=== PATIENT | male | born 1965 | race Hispanic/Latino ===

== ENCOUNTER 2021-01-23 01:06 | Observation (INO) | payer OTHER ==
[2021-01-23] MEDS ORDERED: Boostrix 0.5 ML (Tdap) VIAL ONE (02:41)
[2021-01-23] MEDS ORDERED: Ondansetron PF 4 MG/2 ML Vial ONE ×3 (03:00→16:43)
[2021-01-23] MEDS ORDERED: Morphine 4 MG/ML VIAL ONE (03:00)
[2021-01-23 05:29] VITALS: BMI 25.0
[2021-01-23] MEDS ORDERED: Ondansetron PF 4 MG/2 ML Vial IVP PRN (05:45)
[2021-01-23] MEDS ORDERED: Ondansetron ODT 4 MG TAB SL PRN (05:45)
[2021-01-23] MEDS: Morphine 4 MG/ML VIAL SLOW IVP PRN ×2 (05:55→18:18)
[2021-01-23] MEDS ORDERED: hydrALAZINE 20 MG/ML VIAL SLOW IVP PRN (07:03)
[2021-01-23] MEDS ORDERED: Dextrose 50% Abboject 50 ML SYRINGE SLOW IVP PRN (07:03)
[2021-01-23] MEDS ORDERED: Dextrose 5% in Water 1,000 ML IV PRN (07:03)
[2021-01-23 07:50] LABS: Phosphorus 3.8 mg/dL (2.3-4.7)
[2021-01-23 07:51] LABS: #Eosinphils 0.1 thou/uL (0.0-0.7); #Lymphocytes 1.8 thou/uL (1.20-3.40); #Monocytes 0.6 thou/uL (0.11-0.59); #Neutrophils 4.5 thou/uL (1.40-6.50); %Basophils 0.7 % (0.0-1.0); %Eosinophils 0.8 % (0.0-10.0); %Lymphocytes 25.6 % (21.0-51.0); %Monocytes 8.7 % (0.0-10.0); %Neutrophils 64.3 % (42.0-75.0); Hemoglobin 14.4 g/dL (14.0-18.0); Mean Corpuscular HGB CONC 33.8 g/dL (32.0-36.0); Mean Corpuscular Hemoglobin 30.5 pg (27.0-31.0); Mean Corpuscular Volume 90.4 fL (78.0-98.0); Mean Platelet Volume 9.2 fL (7.4-10.4); Platelet Count 166 thou/uL (130-400); RBC Distribution Width 12.6 % (11.5-14.5); Red Blood Cell (RBC) Count 4.72 mill/uL (4.70-6.10)
[2021-01-23 07:55] LABS: ALT (SGPT) 42 U/L (8-55); AST (SGOT) 29 U/L (5-34); Albumin 3.9 g/dL (3.5-5.0); Alkaline Phosphatase 78 U/L (40-110); Anion Gap 12 mmol/L (10-20); BUN (Urea Nitrogen) 14 mg/dL (8.4-25.7); Bilirubin, Total 0.6 mg/dL (0.2-1.2); Calc. Creatinine Clearance 105 mL/min (70-130); Calcium 8.7 mg/dL (7.8-10.44); Carbon Dioxide 25 mmol/L (22-29); Chloride 106 mmol/L (98-107); Globulin 2.8 g/dL (2.4-3.5); Glucose 108 mg/dL (70-105); Protein, Total 6.7 g/dL (6.0-8.3); Sodium 139 mmol/L (136-145)
[2021-01-23] MEDS ORDERED: CEFAZOLIN 2 GM in Premix Bag 1 BAG IVPB SCH ×2 (08:15→11:00)
[2021-01-23 09:08] LABS: SARS-CoV-2 NAA Rapid Test Not Detected (NotDetected)
[2021-01-23] MEDS: Sodium Chloride 0.9% 1,000 ML IV SCH ×3 (09:17→21:22)
[2021-01-23] MEDS: Famotidine 20 MG TAB PO SCH ×2 (09:17→20:20)
[2021-01-23] MEDS: Senokot S 8.6-50 MG TAB PO SCH ×2 (09:18→20:19)
[2021-01-23] MEDS: Polyethylene Glycol 3350 17 GM Packet PO SCH (09:18)
[2021-01-23] MEDS: Acetaminophen 500 MG TAB PO SCH ×2 (10:56→18:18)
[2021-01-23] MEDS ORDERED: Bupivacaine PF 0.5% 30 ML VIAL ONE (14:39)
[2021-01-23] MEDS ORDERED: Neomycin-Polymyxin 1 ML AMP ONE (14:39)
[2021-01-23] MEDS ORDERED: Fentanyl 100 MCG/2 ML VIAL ONE ×2 (15:19→17:14)
[2021-01-23] MEDS ORDERED: Famotidine/PF 20 mg/2ml Vial ONE (15:21)
[2021-01-23] MEDS ORDERED: PROPOFOL 200 MG/20 ML VIAL ONE (15:40)
[2021-01-23] MEDS ORDERED: Lidocaine 1% PF 5 ML VIAL ONE (15:40)
[2021-01-23] MEDS ORDERED: Ondansetron HCl/PF 4 MG/2 ML Vial IVP PRN (16:52)
[2021-01-23] MEDS ORDERED: Promethazine HCl 25 MG/ML VIAL IVPB PRN (16:52)
[2021-01-23] MEDS ORDERED: Promethazine HCl 25 MG/ML VIAL IM PRN (16:52)
[2021-01-23] MEDS: traMADol HCl 50 MG TAB PO PRN (20:19)
[2021-01-24] MEDS: Acetaminophen 500 MG TAB PO SCH ×4 (00:35→17:07)
[2021-01-24] MEDS: Ibuprofen 800 MG TAB PO PRN ×2 (00:36→08:42)
[2021-01-24] MEDS: Sodium Chloride 0.9% 1,000 ML IV SCH ×3 (00:38→08:42)
[2021-01-24] MEDS: Senokot S 8.6-50 MG TAB PO SCH ×2 (08:39→20:44)
[2021-01-24] MEDS: Polyethylene Glycol 3350 17 GM Packet PO SCH (08:39)
[2021-01-24] MEDS: Famotidine 20 MG TAB PO SCH ×2 (08:42→20:44)
[2021-01-24] MEDS: traMADol HCl 50 MG TAB PO PRN ×2 (17:08→20:46)
[2021-01-25] MEDS: Acetaminophen 500 MG TAB PO SCH ×4 (01:20→18:10)
[2021-01-25] MEDS: Famotidine 20 MG TAB PO SCH ×2 (07:41→20:37)
[2021-01-25] MEDS: Polyethylene Glycol 3350 17 GM Packet PO SCH (07:41)
[2021-01-25] MEDS: Senokot S 8.6-50 MG TAB PO SCH ×2 (07:41→20:36)
[2021-01-25] MEDS: traMADol HCl 50 MG TAB PO PRN ×2 (14:02→20:36)
[2021-01-25] MEDS ORDERED: Bupivacaine PF 0.5% 30 ML VIAL ONE (15:49)
[2021-01-25] MEDS ORDERED: Bupivacaine 0.25% HCL 30 ML VIAL ONE (15:49)
[2021-01-25] MEDS ORDERED: Mineral Oil Sterile 10ML 10 ML UDCUP ONE (15:49)
[2021-01-25] MEDS ORDERED: Bacitracin Zinc Ointment 30 gm TUBE ONE (15:52)
[2021-01-25] MEDS ORDERED: Sodium Chloride 0.9% 0 ML ONE (15:53)
[2021-01-25] MEDS ORDERED: Fentanyl 100 MCG/2 ML VIAL ONE ×2 (16:04→19:07)
[2021-01-25] MEDS ORDERED: Dexamethasone 20 MG/5 ML VIAL ONE (16:35)
[2021-01-25] MEDS ORDERED: PROPOFOL 200 MG/20 ML VIAL ONE (16:35)
[2021-01-25] MEDS ORDERED: Lidocaine 1% PF 5 ML VIAL ONE (16:35)
[2021-01-25] MEDS ORDERED: Ondansetron PF 4 MG/2 ML Vial ONE (16:35)
[2021-01-25] MEDS ORDERED: Thrombin 5000 UNITS/5 ML VIAL ONE ×2 (17:11→18:13)
[2021-01-25] MEDS ORDERED: Meperidine HCl/PF 25 MG/ML VIAL SLOW IVP PRN (18:47)
[2021-01-25] MEDS ORDERED: Promethazine HCl 25 MG/ML VIAL IM PRN (18:47)
[2021-01-25] MEDS ORDERED: Promethazine HCl 25 MG/ML VIAL IVPB PRN (18:47)
[2021-01-25] MEDS ORDERED: Ketorolac Tromethamine 30 MG/ML VIAL IVP PRN (18:47)
[2021-01-25] MEDS ORDERED: Ondansetron HCl/PF 4 MG/2 ML Vial IVP PRN (18:47)
[2021-01-25] MEDS ORDERED: Ketorolac Tromethamine 30 MG/ML VIAL ONE (18:49)
[2021-01-25] MEDS: Ibuprofen 800 MG TAB PO PRN (20:37)
[2021-01-25] MEDS: Gentamicin Sulfate 80 MG in Premix Bag 1 BAG IVPB SCH (22:31)
[2021-01-26] MEDS: CEFAZOLIN 2 GM in Premix Bag 1 BAG IVPB SCH ×3 (00:21→16:09)
[2021-01-26] MEDS: Acetaminophen 500 MG TAB PO SCH ×3 (00:22→12:26)
[2021-01-26] MEDS: Ketorolac Tromethamine 30 MG/ML VIAL IVP SCH ×3 (00:22→12:26)
[2021-01-26] MEDS: Gentamicin Sulfate 80 MG in Premix Bag 1 BAG IVPB SCH (06:13)
[2021-01-26] MEDS: traMADol HCl 50 MG TAB PO PRN (11:19)
[2021-01-26] MEDS: Famotidine 20 MG TAB PO SCH (11:19)
[2021-01-26] MEDS: Senokot S 8.6-50 MG TAB PO SCH (11:20)
[2021-01-26 11:50] VITALS: BP 103/66; TEMP 98.4
[2021-01-26] MEDS: Polyethylene Glycol 3350 17 GM Packet PO SCH (12:23)
[2021-01-26] MEDS: Ibuprofen 800 MG TAB PO PRN (16:07)
[2021-01-26] MEDS ORDERED: Enoxaparin Sodium 40 MG/0.4 ML SYRINGE SC SCH (21:00)
== END 2021-01-26 16:30 | disposition home or self-care (01) ==
LOC: ERS 01:06 → SURG B 03:26
PROVIDERS: ADMIT Surgery; ATTEND Surgery
PROC: 0JQJ0ZZ Repair Right Hand Subcutaneous Tissue and Fascia, Open Approach (ICD-10-PCS; principal; 2021-01-23)
PROC: 0HQQXZZ Repair Finger Nail, External Approach (ICD-10-PCS; 2021-01-25)
PROC: 0PST34Z Reposition Right Finger Phalanx with Internal Fixation Device, Percutaneous Approach (ICD-10-PCS; 2021-01-25)
PROC: 0HRFX74 Replacement of Right Hand Skin with Autologous Tissue Substitute, Partial Thickness, External Approach (ICD-10-PCS; 2021-01-25)
PROC: 01Q60ZZ Repair Radial Nerve, Open Approach (ICD-10-PCS; 2021-01-25)
PROC: 01Q40ZZ Repair Ulnar Nerve, Open Approach (ICD-10-PCS; 2021-01-25)
DX: S67.190A Crushing injury of right index finger, initial encounter (principal); S67.192A Crushing injury of right middle finger, initial encounter; S62.610B Displaced fracture of proximal phalanx of right index finger, initial encounter for open fracture; S61.212A Laceration without foreign body of right middle finger without damage to nail, initial encounter; S01.81XA Laceration without foreign body of other part of head, initial encounter; G89.11 Acute pain due to trauma; M24.541 Contracture, right hand; M19.90 Unspecified osteoarthritis, unspecified site; Z20.822 Contact with and (suspected) exposure to COVID-19; W22.8XXA Striking against or struck by other objects, initial encounter; Y99.0 Civilian activity done for income or pay
CPT/HCPCS: 36415; 71045; 76000; 80053; 83735; 84100; 85025; 90471; 90715; 96374; 96375; 96376; G0378; J0690; J1100; J1580; J1885; J2270; J2405; J2704; J3010; J3490; S0020; S0028; U0002; U0005